=== PATIENT | male | born 1955 | race Caucasian/White ===

== ENCOUNTER → 2024-11-05 13:33 | Outpatient (REF) | payer MEDICARE, BC, SELFPAY | LOC: HWRAD 13:33 | PROVIDERS: ATTENDING PHYSICIAN Physician Assistant Medical | DX: M16.0 Bilateral primary osteoarthritis of hip (principal) | CPT/HCPCS: 73522 ==

== ENCOUNTER 2025-01-26 05:40 | Observation (INO) | payer OTHER, SELFPAY ==
[2025-01-25 23:50] VITALS: BP 144/59; BMI 37.8
[2025-01-26] VITALS (14 sets, daily range): BP systolic 124–173; BP diastolic 46–82; PULSE 59–85; BMI 38.0
[2025-01-26 00:32] LABS: ALT (SGPT) 27 U/L (0-50); AST (SGOT) 30 U/L (17-59); Albumin 4.0 g/dl (3.5-5.0); Alkaline Phosphatase 78 U/L (38-126); Blood Urea Nitrogen 38 mg/dl (9-20); Calcium 8.7 mg/dl (8.4-10.2); Carbon Dioxide 23 mmol/L (22-30); Chloride 108 mmol/L (98-107); Estimated Creatinine Clearance 54 ml/min; Glucose 146 mg/dl (70-99); Hematocrit 37.9 % (39.0-52.0); Hemoglobin 12.2 g/dL (13.0-18.0); Mean Corp Hgb Conc. 32.2 g/dL (33.0-37.0); Mean Corpuscular Volume 81.5 fL (80.0-94.0); Nucleated Red Blood Cells % 0 % (-); Platelet Count 184 10^3/uL (130-400); Potassium 4.8 mmol/L (3.5-5.1); Red Cell Dist. Width 15.3 % (11.5-14.5); Sodium 134 mmol/L (135-145); Total Protein 6.5 g/dl (6.3-8.2); eGFR 46.06
[2025-01-26 00:39] LABS: INR 2.26; PT 25.1 Sec (11.4-14.6)
[2025-01-26 00:42] LABS: Troponin I < 0.012 ng/ml
--- NOTE | 2025-01-26 01:35 | EDRN ---
Pt pulled up old labs on his phone from August, Creatinine was 1.47
--- NOTE | 2025-01-26 02:25 | ED.GENMED ---
History of Present Illness
General
Chief Complaint: Dizziness
Source: patient
Exam Limitations: none
Time Seen by Provider: 01/26/25 02:15
Nursing documentation reviewed up to this point in time: agreed with
History of Present Illness
History of Present Illness:
Note:
CHIEF COMPLAINT(S)
Confusion, dizziness
HISTORY OF PRESENT ILLNESS
The patient is a 69-year-old male with a history of atrial fibrillation on Warfarin, hypertension, hyperlipidemia, diabetes, who presented with acute onset of confusion, dizziness, and tingling sensations. The symptoms began around 9:30 to 10:00 PM
while the patient was sitting and conversing with his girlfriend. He was sitting in a chair in the living room when the symptoms started. He described feeling as though his blood was draining from his body, mayi to passing through a thermocline
while scuba diving, experiencing a sensation of pressure and cold. The patient reported confusion, lightheadedness, and a tingling sensation in his hands, knees, and legs, which he described as 'pins and needles.' No back pain was reported. He
recounted feeling like he was dying and struggled with word-finding and also had difficulties speaking as well however he notes that his girlfriend did not notice any changes to his. The patient believes the episode lasted around 5 to 10 minutes.
The patient denied previous experiences of similar episodes and reported feeling better at the time of the evaluation. He denies headache, neck pain, double vision, blurry vision, difficulty swallowing, one-sided weakness. He denies chest pain,
shortness of breath.
REVIEW OF SYSTEMS
See HPI
PHYSICAL EXAM
Nursing notes reviewed and vital signs reviewed.
General: Patient is well appearing and in no acute distress; non-toxic
Skin: Warm and dry, no rashes or lesions
Head: Normocephalic, atraumatic
Eyes: Sclera non-icteric. EOMs intact.
Cardiac: Regular rate and rhythm, no murmurs
Peripheral Vascular: No lower extremity swelling or edema
Pulm: Normal respiratory effort, no wheezes, rales, rhonchi
Abdomen: No abdominal tenderness
Musculoskeletal: 5 out of 5 strength in bilateral upper and lower extremities
Neuro: CN II-XII intact, no focal neurologic deficits. Normal finger-nose, [id number] testing. Normal gait. Normal speech.
Psychiatric: Appropriate mood and affect.
PROBLEM LIST
Acute Problems:
- Confusion
- Dizziness
- Tingling sensation in extremities
Chronic Problems:
- Atrial fibrillation
- Chronic kidney disease
PLAN
1. Administer intravenous fluids to address dehydration as indicated by blood work.
2. Conduct a computed tomography (CT) of the head
3. CBC, CMP, AC
DIFFERENTIAL DIAGNOSIS
The Differential Diagnosis includes, in no particular order and is not limited to:
1. Transient Ischemic Attack (TIA)
2. Stroke
3. Dehydration-induced Hypovolemia
4. Orthostatic Hypotension
5. Electrolyte Imbalance
6. Atrial Fibrillation-related episode
7. Anxiety Attack
8. Hypoglycemia
9. Labyrinthitis
10. Vertebrobasilar Insufficiency
CHART REVIEW
No prior ER physician documentation to review, no discharge summaries to review
Reviewed external medical summary report from October 22, 2024, patient had noted to have mixed hyperlipidemia which is stable and he is continued on his statin
MDM/DISPOSITION
The patient is a 69-year-old male with a history of atrial fibrillation on Warfarin, hypertension, hyperlipidemia, diabetes, who presented with acute onset of confusion, dizziness, and tingling sensations. The symptoms began around 9:30 to 10:00 PM
while the patient was sitting and conversing with his girlfriend. In the ER today he had an unremarkable work-up. He has a normal neurologic exam. At this time, cannot rule out TIA. Will admit for further work up
Review of Systems
Review of Systems
All Other Systems: ROS reviewed and negative except as documented in HPI and ROS
Phy Exam
Physical Exam
Physical Exam:
see hpi
Course
Orders/Labs/Results
Orders:
Orders
01/25/25 23:49
EKG [Electrocardiogram (*1)] Urgent
Reason for Study: Chest Pain
EKG- Treatment ONCE
01/25/25 23:57
Complete Blood Count/With Diff Urgent
Comprehensive Metabolic Panel Urgent
Prothrombin Time Urgent
Troponin I Urgent
01/26/25 02:38
CT Head W/o Iv Contrast Urgent
Comment:
Reason For Exam: transient dizziness, word finding difficulties
0.9% Sodium Chloride 500 ml [Nss] 500 ml IV BOLUS
01/26/25 05:18
Admit/Transfer Patient As Directed
Co-Sign Provider:
Level of Care: Observation services
Assign to:: Telemetry
Physician / Group: Emre
Diagnosis: TIA
Reason for Telemetry: CVA/TIA
Date to Stop Telemetry: 01/29/25
Time to Stop Telemetry: 11:00
PRN Pain Medication Management As Directed
May give lesser potent ordered pain med per pt: Yes
preference::
Protocol:: Medication orders for pain may be administered in a
manner that supports deferring to patient preference
when the pt is:
- Requesting an ordered lesser potent pain medication.
Least to most potent pain medications are defined
as: acetaminophen < NSAID < tramadol < opioids
(morphine, oxycodone, hydromorphone).
- Requesting a lesser dose of the same medication IF
ORDERED.
- Requesting a less intrusive route of administration
if both routes are prescribed by the provider (PO <
IV).
01/26/25 05:20
Code Status As Directed
Resuscitation Status: Full Code
01/26/25 Breakfast
2000 calorie (17 carb) Diabetic
At Your Request: Full Participation
Does patient need a safe tray?: No
01/26/25 06:36
0.9% Sodium Chloride 1000 ml [Nss] 1,000 ml IV 100 mls/hr
Acetaminophen [Tylenol] 650 mg PO Q4HPRN PRN
Dextrose 50%-Water [Dextrose 50% Syringe] 12.5 grams IV [id number] PRN
Glucagon [GlucaGen] 1 mg IM PRN PRN
Zolpidem Tartrate [Ambien] 10 mg PO HS PRN Insomnia Insomnia
01/26/25 06:36
Activity As Directed
Activity Level: Ambulate
With Assistance
Bedside Glucose Monitoring As Directed
Frequency: AC&HS
Additional Instructions:: Change to q6h if pt on TPN, tube feeding or not eating
Bladder Scan As Directed
Follow Bladder Retention/Intermittent Cath Algorithm?: Yes
PRN if no void in __ hours: 6
Frequency: Per Retention Algorithm
If Bladder Scan Result >: 400
then:: Straight cath
EKG with chest pain [ECG as needed] As Directed
ECG as needed for:: Chest Pain
I/O [Intake/ Output] As Directed
Frequency: Per unit guidelines
Neurological Checks As Directed
Frequency: q4h
Orthostatic Vital Signs As Directed
Orthostatic VS Frequency: BID
Straight Cath As Directed
Frequency: Per Retention Algorithm
Additional Instructions: straight cath as needed per acute urinary retention algorithm for 24 hrs
Additional Instructions: for bladder scan greater than 400 mL
Vital Signs As Directed
Frequency: Per unit guidelines
Weight As Directed
Frequency: Daily
Cpap [RESP] Routine
Patient to use own unit?: No
Set Pressure (cm H2O): 4
Instructions: HS and PRN.
Oxygen Therapy [O2 Therapy] [RESP] Routine
Titrate/Wean O2 to maintain O2 sat greater than (%): 94
Ot Eval And Treat Routine
PT Consult [Pt Eval And Treat] Routine
Activity Level: Ambulate
With Assistance
Speech Therapy Eval & Treat Routine
01/26/25 07:30
Insulin Aspart Corrective Mod [Novolog Flexpen-Moderate Resistance] See Protocol SC AC
01/26/25 07:37
TSH Reflex To Free T4 Routine
01/26/25 08:00
Clonidine [Catapres] 0.1 mg PO BID
Escitalopram Oxalate [Lexapro] 20 mg PO DAILY
Pantoprazole [Protonix] 40 mg PO DAILY
Verapamil [Calan] 120 mg PO BID
insulin degludec [Tresiba FlexTouch U-200] 40 unit SC DAILY
01/26/25 18:00
Tamsulosin [Flomax] 0.4 mg PO QPM
Warfarin [Coumadin] 5 mg PO [id number]@1800
01/26/25 22:00
Rosuvastatin Calcium [Crestor] 40 mg PO HS
01/27/25 06:00
Echo 2D MMode Doppler [Echo 2D MMode Color/Doppler] IN AM
Reason for Study: Murmur, TIA
Basic Metabolic Panel IN AM
Cardiovascular Evaluation IN AM
Complete Blood Count/No Diff IN AM
Glycohemoglobin (HgbA1c) IN AM
Prothrombin Time IN AM
MR Brain Without Contrast IN AM
Comment:
Reason For Exam: CVA / TIA
Recent pill cam endoscopy?: No
01/28/25 06:00
Prothrombin Time IN AM
01/28/25 18:00
Warfarin [Coumadin] 7.5 mg PO SuWe@1800
01/29/25 06:00
Prothrombin Time IN AM
01/29/25 11:00
DC Protocol for Telemetry ONCE
Abnormal Lab Results
01/26/25
00:08
RBC 4.65 L 10^6/uL
(4.70-6.10)
Hgb 12.2 L g/dL
(13.0-18.0)
Hct 37.9 L %
(39.0-52.0)
MCH 26.2 L pg
(27.0-31.0)
MCHC 32.2 L g/dL
(33.0-37.0)
RDW 15.3 H %
(11.5-14.5)
Abs Immat Gran (auto) 0.2 H 10^3/uL
(0-0.05)
Absolute Monos (auto) 0.8 H 10^3/uL
(0.1-0.6)
Immature Gran % 2.1 H %
(0-0.5)
Monocytes % 10.9 H %
(1.7-9.3)
PT 25.1 H Sec
(11.4-14.6)
Sodium 134 L mmol/L
(135-145)
Chloride 108 H mmol/L
(98-107)
BUN 38 H mg/dl
(9-20)
Creatinine 1.6 H mg/dL
(0.7-1.3)
Glucose 146 H mg/dl
(70-99)
01/26/25 00:08
01/26/25 00:08
Vital Signs
Initial and Last Documented VS:
Initial Vital Signs
Temp Pulse Resp BP Pulse Ox
97.2 F 68 20 144/59 97
01/25/25 23:50 01/25/25 23:50 01/25/25 23:50 01/25/25 23:50 01/25/25 23:50
Last Documented Vital Signs
Temp Pulse Resp BP Pulse Ox
97.8 F 52 16 137/58 97
01/26/25 06:30 01/26/25 07:27 01/26/25 06:36 01/26/25 06:36 01/26/25 08:00
*Pulse Oximetry
SaO2: 96
Oxygen Mode of Delivery: Room air
Patient hypoxic: no
*Critical Care Note
Total Time (30-74mins, 75-104mins- exclusive of procedures): Not Applicable
ED Attending Note
-
Portions of this chart may have been created with voice recognition software.� Occasional wrong word or��sound alike� substitutions may have occurred due to the inherent limitations of voice recognition software.
Discharge Plan
Departure
Patient Disposition: Admit
Date of Disposition: 01/26/25
Time of Disposition: 04:46
Admit to: Med/Surg
Presentation/result/management discussed w/ accepting MD/DO: Hospitalist
Patient with high blood pressure during this ER visit?: Yes
Condition: Fair
Discharge Problem:
Transient paresthesia, Word finding problem
Interventions
Interventions:
*Risk Screen - Suicide Last Done: 01/25/25 23:50
*General Assessment Last Done: 01/25/25 23:50
*Neglect/Abuse Screening Last Done: 01/25/25 23:50
*ED- Fall Risk Assessment Last Done: 01/25/25 23:50
*ED COVID-19 Vaccine History Last Done: 01/26/25 00:10
*Nursing Disposition Last Done: 01/26/25 06:36
ED- Neurological Assessment Last Done: 01/26/25 03:30
ED- Cardiac Assessment Last Done: 01/26/25 03:30
ED Swallowing Screen Last Done: 01/26/25 00:11
Discharge Date and Time
Discharge Date/Time: 01/26/25 06:20
[2025-01-26] MEDS: NSS 500 IV (02:41)
--- NOTE | 2025-01-26 05:22 | HPS.HSE ---
Family Physician
-
Family Physician: Tanisha Griffith
Chief Complaint
-
Confusion
History of Present Illness
Patient is a 69y M with PMH significant for hypertension, DM-II and A-Fib who presents to ED complaining of episode of confusion this evening. Patient states that he was seated and watching TV this evening around 10 PM when he suddenly felt very
confused and disoriented. He states that he felt a sense of 'draining' from his head to his toes. He notes very dry mouth and states that he had difficulty speaking as a result. No focal weakness or numbness. No fall or injury. ? word finding
difficult described by EMS - however, patient reports that dry mouth kept him from speaking correctly. He denies any prior history of similar symptoms.
Here in the ED, patient feels completely back to his baseline.
He denies any recent illness, symptoms or complaints. No fevers / chills. No N/V/D.
No recent medication changes.
Medical History
Past Medical History
Past Medical History: Reports Other
Additional Past Medical History:
Paroxysmal Atrial Fibrillation
Hypertension
DM-II
Obesity
GERD
SHELL on CPAP
BPH
Depression / PTSD
Insomnia
Past Surgical History: Reports Other
Additional Past Surgical History:
Hernia Repair
Appendectomy
Right Shoulder Arthroscopy
R Index Finger Partial Amputation (trauma)
Social History
Tobacco: Former Smoker (Quit smoking 25 years ago. Approx 25 pack years total use.)
Alcohol: None
Drug: None
Family History
Family History: Not pertinent
Allergies / Home Medications
Allergies reflects when Allergies were last updated in [facility].
Home Medications with original date entered in [facility]
Allergy/Medication List:
Allergies
Allergy/AdvReac Type Severity Reaction Status Date / Time
Penicillins Allergy Rash Verified 01/26/25 01:20
ubidecarenone (From H2Q Allergy Hives Verified 01/26/25 01:20
CoQ10)
Home Medications
acetaminophen 650 mg tablet,extended release (Tylenol 8 Hour) 1,300 mg PO Q8H PRN pain 01/26/25
clonidine HCl 0.1 mg tablet 0.1 mg PO BID 01/26/25
escitalopram oxalate 20 mg tablet 20 mg PO DAILY 01/26/25
hydrochlorothiazide 12.5 mg tablet 12.5 mg PO DAILY 01/26/25
insulin aspart U-100 100 unit/mL (3 mL) subcutaneous pen (Novolog FlexPen U-100 Insulin aspart) 1 sliding scale dose SC DIRECTED PRN bllod sugar level/diet 01/26/25
insulin degludec 200 unit/mL (3 mL) subcutaneous pen (Tresiba FlexTouch U-200 insulin) 40 unit SC DAILY 01/26/25
pantoprazole 40 mg tablet,delayed release 40 mg PO DAILY 01/26/25
pioglitazone 45 mg tablet 45 mg PO DAILY 01/26/25
rosuvastatin 40 mg tablet 40 mg PO HS 01/26/25
tamsulosin 0.4 mg capsule 0.4 mg PO QPM 01/26/25
valsartan 160 mg tablet 160 mg PO BID 01/26/25
verapamil 120 mg tablet 120 mg PO BID 01/26/25
warfarin 5 mg tablet 5 mg PO MOTUTHFRSA 01/26/25
warfarin 7.5 mg tablet 7.5 mg PO SUWE 01/26/25
zolpidem 10 mg tablet 10 mg PO HS 01/26/25
Review of Systems
-
History Source: Patient
A 12 point ROS was completed and negative except as noted: Yes
Constitutional: Reports Fatigue; Denies Fever or Chills
EENT: Reports Other (Dry Mouth); Denies Sore Throat
Respiratory: Denies Cough or Trouble Breathing
Cardiac: Denies Chest Pain, Diaphoresis or Palpitations
Abdomen/GI: Denies Abdominal Pain, Nausea, Vomiting or Diarrhea
: Denies Dysuria, Frequency or Flank Pain
Musculoskeletal: Reports Edema; Denies Joint Pain
Neurological: Denies Dizzy, Headache, Weakness or Numbness
Psych: Denies Depression or Anxiety
Physical Exam
Vital Signs
Vital Signs
Temp Pulse Resp BP Pulse Ox
97.2 F 54 10 130/68 98
01/25/25 23:50 01/26/25 04:00 01/26/25 04:00 01/26/25 04:00 01/26/25 04:00
Physical Exam
General: Other (69y M in no acute distress.)
HEENT: Other (Dry MM. Thick neck.)
Respiratory: Clear; No Wheezes, Rales or Rhonchi
Cardiac: S1/S2, Regular Rhythm and Murmur (II/ KEYANNA)
GI: Soft, Non Tender, Non Distended and Normal Bowel Sounds
Musculoskeletal: No Clubbing, No Cyanosis and Other (1+ pitting edema b/l ankles.)
Neuro: AO x 3 and Nonfocal/grossly intact
Laboratory Results
-
01/26/25 00:08
01/26/25 00:08
Laboratory Results
PT 25.1 Sec (11.4-14.6) H 01/26/25 00:08
INR 2.26 01/26/25 00:08
Total Bilirubin 0.5 mg/dl (0.2-1.3) 01/26/25 00:08
AST 30 U/L (17-59) 01/26/25 00:08
ALT 27 U/L (0-50) 01/26/25 00:08
Alkaline Phosphatase 78 U/L (38-126) 01/26/25 00:08
Troponin I < 0.012 ng/ml 01/26/25 00:08
Impression/Plan
-
A/P: Patient is a 69y M with PMH significant for hypertension, DM-II and A-Fib who presents to ED complaining of episode of confusion and disorientation this evening.
Confusion / Disorientation
- Observe overnight for further evaluation and treatment.
- Patient's description of draining sensation and generalized 'foggy' feeling, dry mouth, etc sound c/w hypotension / hypoglycemia or some other metabolic / global issue.
- No specific focal complaints to suggest acute CVA - though he has multiple risk factors for this.
- CT head in the ED was unremarkable. Check MRI for completeness. Neuro evaluation if any abnormalities appreciated.
- Monitor for any new / recurrent symptoms.
- Monitor on tele for any arrhythmia.
- Check Echo given murmur appreciated on exam.
- Check orthostatic signs. Monitor for hypotension, hypoglycemia, etc.
URIEL v CKD
- SCr = 1.6 with no prior value for baseline.
- Will hold HCTZ and ARB for now.
- IVFs overnight and follow SCr to establish baseline.
Benign Hypertension
- Stable. Well-controlled on current multidrug regimen.
- Holding HCTZ and valsartan acutely as noted above.
- Continue other medications with holding parameters to avoid hypotension.
- Adjust regimen as needed.
DM-II
- Stable. Continue basal : bolus insulin regimen.
- Hold pioglitazone acutely.
- Follow glucose and cover with SSI as needed.
- Update A1C.
Paroxysmal Atrial Fibrillation
- Stable. In NSR at present.
- Continue verapamil for rate control.
- Continue Coumadin for stroke risk reduction (missed this evening's dose).
- Follow daily INR and adjust regimen as needed.
SHELL on CPAP
- Stable. Continue nightly PAP therapy.
BPH
- Stable. Continue tamsulosin.
- Bladder scan protocol.
Depression / PTSD
- Stable. Continue Lexapro.
DVT Prophylaxis: On Coumadin
Code Status: Full
--- NOTE | 2025-01-26 06:21 | PTCARENOTE ---
pt rec'vd from ER able to self ambulate to bed, vs WNL, pt voided ambulated to restroom, oriented to unit.
--- NOTE | 2025-01-26 06:35 | EDRN ---
Patient taken to room 2106 on monitor on stretcher by technology sales consultant.
[2025-01-26 07:05] LABS: Glucose - Point of Care 81 mg/dl (70-99)
[2025-01-26] MEDS: NSS 1000 IV ×2 (07:18→17:24)
--- NOTE | 2025-01-26 07:57 | W.PN.HOSP.TC ---
Today's Communication/Plan
-
Continue to monitor on telemetry
See plan
Assessment / Plan
Assessment / Plan
Physical Exam
General: Other (69y M in no acute distress.)
HEENT: Other (Dry MM. Thick neck.)
Respiratory: Clear; No Wheezes, Rales or Rhonchi
Cardiac: S1/S2, Regular Rhythm and Murmur (II/ KEYANNA)
GI: Soft, Non Tender, Non Distended and Normal Bowel Sounds
Musculoskeletal: No Cyanosis and Other (1+ pitting edema b/l ankles.)
Neuro: AO x 3 and Nonfocal/grossly intact
Assessment/Plan
69 y/o male with past medical history significant for hypertension, DM-II and A-Fib who presents to ED complaining of episode of confusion on 01/25/25 evening. Patient stated that he was seated and watching TV around 10 PM when he suddenly felt
very confused and disoriented. He stated that he felt a sense of 'draining' from his head to his toes. He noted very dry mouth and states that he had difficulty speaking as a result. No focal weakness or numbness. No fall or injury. ? word
finding difficult described by EMS - however, patient reports that dry mouth kept him from speaking correctly. He denied any prior history of similar symptoms.
Once in the ED, patient felt completely back to his baseline.
He denied any recent illness, symptoms or complaints. No fevers / chills. No N/V/D.
No recent medication changes.
Confusion / Disorientation
Concern for Symptomatic Bradycardia Resulting in Patient's Weakness
- Patient's description of draining sensation and generalized 'foggy' feeling, dry mouth, etc sound c/w hypotension / hypoglycemia or some other metabolic / global issue.
- No specific focal complaints to suggest acute CVA - though he has multiple risk factors for this.
- CT head in the ED was unremarkable. Check MRI for completeness. Neuro evaluation if any abnormalities appreciated.
- Monitor for any new / recurrent symptoms.
- Monitor on tele for any arrhythmia.
- Echo
- Cardio consult given concern for symptomatic bradycardia
- Check orthostatic signs -- negative so far. Monitor for hypotension, hypoglycemia, etc.
URIEL v CKD
- SCr = 1.6-->1.5 (with no prior value for baseline).
- Will hold HCTZ and ARB for now.
- IVFs and follow SCr to establish baseline.
Benign Hypertension
- Stable. Well-controlled on current multidrug regimen.
- Holding HCTZ and valsartan acutely as noted above.
- Continue other medications with holding parameters to avoid hypotension.
- Adjust regimen as needed.
DM-II
- Stable. Continue basal : bolus insulin regimen.
- Hold pioglitazone acutely.
- Follow glucose and cover with SSI as needed.
- Update A1C.
Paroxysmal Atrial Fibrillation
- Stable.
- Continue verapamil for rate control -- dose reduced to help with bradycardia and patient's presenting symptoms
- Continue Coumadin for stroke risk reduction (missed this evening's dose).
- Follow daily INR and adjust regimen as needed.
SHELL on CPAP
- Stable. Continue nightly PAP therapy.
BPH
- Stable. Continue tamsulosin.
- Bladder scan protocol.
Depression / PTSD
- Stable. Continue Lexapro.
DVT Prophylaxis: On Coumadin
Code Status: Full
This is not a billable note.
Anticipated Discharge: 24 - 48 hours
Subjective/Interval History
-
Date of Service: January 26, 2025
Patient was seen and examined. He stated that his confusion and weakness have completely resolved and he is feeling fine.
Objective Data
-
Labs:
Laboratory Results
01/26/25
00:08
WBC 7.2
Hgb 12.2 L
Hct 37.9 L
Plt Count 184
PT 25.1 H
INR 2.26
Sodium 134 L
Potassium 4.8
Chloride 108 H
Carbon Dioxide 23
BUN 38 H
Creatinine 1.6 H
Glucose 146 H
Calcium 8.7
Total Bilirubin 0.5
AST 30
ALT 27
Alkaline Phosphatase 78
Vital Signs:
Vital Signs
Temp Pulse Resp BP Pulse Ox
97.8 F 52 16 137/58 97
01/26/25 06:30 01/26/25 07:27 01/26/25 06:36 01/26/25 06:36 01/26/25 06:36
[2025-01-26] MEDS: PROTONIX 40 MG PO (08:00)
[2025-01-26] MEDS: LEXAPRO 20 MG PO (08:00)
[2025-01-26] MEDS: CATAPRES 0.1 MG PO ×2 (08:01→21:15)
[2025-01-26 08:24] LABS: Hematocrit 38.1 % (39.0-52.0); Hemoglobin 12.1 g/dL (13.0-18.0); Mean Corp Hgb Conc. 31.8 g/dL (33.0-37.0); Mean Corpuscular Volume 82.6 fL (80.0-94.0); Platelet Count 174 10^3/uL (130-400); Red Cell Dist. Width 15.4 % (11.5-14.5)
--- NOTE | 2025-01-26 09:17 | PTOTSP ---
Speech Therapy Evaluation:
Pt with functional oropharyngeal swallow at bedside. No overt s/sx of aspiration. Head CT negative, pt passed 3oz swallow screen, NIH 0, vitals stable, WBC WNL, and pt without hx of dysphagia.
Recommend:
1. Cont. regular solids and thin liquids
2. Meds as tolerated
3. General aspiration precautions
4. [employer] to s/o - please reconsult if indicated
[2025-01-26 09:26] LABS: Blood Urea Nitrogen 33 mg/dl (9-20); Calcium 8.9 mg/dl (8.4-10.2); Carbon Dioxide 24 mmol/L (22-30); Chloride 108 mmol/L (98-107); Estimated Creatinine Clearance 56 ml/min; Glucose 84 mg/dl (70-99); Magnesium 2.1 mg/dl (1.6-2.3); Potassium 4.4 mmol/L (3.5-5.1); Sodium 136 mmol/L (135-145); eGFR 49.77
[2025-01-26] MEDS: LANTUS 0.4 UNITS SC (09:38)
--- NOTE | 2025-01-26 09:38 | CON.CAR ---
Addendum entered and electronically signed by Russell Patton MD 01/26/25 14:04:
I saw and examined the patient.
The CONTINUOUS IMPROVEMENT MANAGER's note was reviewed and I agree with the note.
69-year-old male with a history of paroxysmal atrial fibrillation, chronic anticoagulation with Coumadin, moderate aortic stenosis, hypertension diabetes and CKD who presents having an episode of dizziness disorientation and weakness. He says he
was in his usual state of health sitting in a chair and almost felt like the blood was draining from his head he felt a bit disoriented was but was still able to call 911 and was able to check his blood sugar (no hypoglycemia recorded) symptoms
lasted 5 minutes. He was still having some symptoms when he EMS arrived but not as severe. No hypotension or arrhythmias reported. Patient is currently asymptomatic. He has had some heart rates in the 50s but no evidence of severe bradycardia or
indication for pacing. He is normally on verapamil SR 120 mg twice a day (verified by calling his pharmacy) last dose was yesterday evening.
Exact cause of symptoms unclear. Patient does not clearly describe presyncopal symptoms although it is possible that some of what he is describing was a presyncopal episode. Also would consider neurologic causes in this patient to felt as if he
was disoriented. Currently blood pressure stable and patient in sinus rhythm.
- Continue to monitor on telemetry
- Empirically reduce verapamil to 120 mg once a day
- Echocardiogram
-Continued assessment for other causes of symptoms by primary team
- If patient remains asymptomatic and the above testing does not show a clear cause of symptoms then I would recommend longer outpatient cardiac monitoring such as a a 2-week monitor.
Original Note:
Consultation
Consultation Request
Date/Time Consultation Requested: 01/26/25917
Date/Time Consultation Performed: 01/26/25929
Requesting Provider: Dr. Mendoza
Performing Provider: Jessica MOSLEY for Dr. Patton
Reason for Consultation: weakness/disorientation episode
Medical History
-
Chief Complaint: disorientation/weakness
History of Present Illness:
69 y/o male (previous fingernail former Dr. Thomas, but transitioning to Dr. Cueva) with PAF on warfarin, DM2, CKD3, dyslipidemia, HTN, moderate , and obesity who is here for an episode last night of disorientation/weakness while he was sitting
in his chair around 10 PM talking to his girlfriend. He felt like the blood left him and he was having feelings of eugene vu. He was weak and felt like he was going to . His girlfriend said he was able to talk and was not pale. His blood sugar was
154. He was able to contact 911. He thinks the whole episode lasted about 5 minutes.
Past Medical History
Past Medical History: Arrhythmias, HTN, Hypercholesterolemia and NIDDM
Social History
Tobacco: Former Smoker
Family History
Family History: Reviewed & Not Pertinent
Allergies / Home Medications
Allergy/AdvReac Type Severity Reaction Status Date / Time
Penicillins Allergy Rash Verified 01/26/25 01:20
ubidecarenone (From H2Q Allergy Hives Verified 01/26/25 01:20
CoQ10)
�Medication �Instructions �Recorded �Confirmed �Type
acetaminophen 650 mg 1,300 mg PO Q8H PRN pain 01/26/25 01/26/25 History
tablet,extended release (Tylenol 8
Hour)
clonidine HCl 0.1 mg tablet 0.1 mg PO BID 01/26/25 01/26/25 History
escitalopram oxalate 20 mg tablet 20 mg PO DAILY 01/26/25 01/26/25 History
hydrochlorothiazide 12.5 mg tablet 12.5 mg PO DAILY 01/26/25 01/26/25 History
insulin aspart U-100 100 unit/mL 1 sliding scale dose SC 01/26/25 01/26/25 History
(3 mL) subcutaneous pen (Novolog DIRECTED PRN bllod sugar level/diet
FlexPen U-100 Insulin aspart)
insulin degludec 200 unit/mL (3 40 unit SC DAILY 01/26/25 01/26/25 History
mL) subcutaneous pen (Tresiba
FlexTouch U-200 insulin)
pantoprazole 40 mg tablet,delayed 40 mg PO DAILY 01/26/25 01/26/25 History
release
pioglitazone 45 mg tablet 45 mg PO DAILY 01/26/25 01/26/25 History
rosuvastatin 40 mg tablet 40 mg PO HS 01/26/25 01/26/25 History
tamsulosin 0.4 mg capsule 0.4 mg PO QPM 01/26/25 01/26/25 History
valsartan 160 mg tablet 160 mg PO BID 01/26/25 01/26/25 History
verapamil 120 mg tablet 120 mg PO BID 01/26/25 01/26/25 History
warfarin 5 mg tablet 5 mg PO MOTUTHFRSA 01/26/25 01/26/25 History
warfarin 7.5 mg tablet 7.5 mg PO SUWE 01/26/25 01/26/25 History
zolpidem 10 mg tablet 10 mg PO HS 01/26/25 01/26/25 History
Review of Systems
-
History Source: Patient
All other systems: Negative unless noted
Neurological: Other (disorientation and weakness episode as described)
Physical Exam
Vital Signs
Temp Pulse Resp BP Pulse Ox
97.8 F 52 16 137/58 97
01/26/25 06:30 01/26/25 07:27 01/26/25 06:36 01/26/25 06:36 01/26/25 08:00
Lab Results
01/26/25 07:37
01/26/25 07:37
Troponin I < 0.012 ng/ml 01/26/25 00:08
Physical Exam
General: Well Developed, Well Nourished and No Apparent Distress
HEENT: Normocephalic and Anicteric
Respiratory: Clear and Non Labored Respirations
Cardiac: Regular Rhythm and Murmur (II/ murmur)
Musculoskeletal: Edema (mild BLE edema (R > L), chronic per patient)
Skin: Warm and Dry
Neuro: AO x 3
Psych: Calm
Impression / Plan
-
Disorientation/weakness episode:
-etiology is unclear
-CT negative, MRI pending, orthos pending
-tele stable so far, continue to follow- no significant bradycardia
-echo to be obtained
PAF:
-stable in SR- continue to monitor on telemetry
-on warfarin, INR at goal, followed by PCP
Moderate :
-echo Feb 2024: EF 63%, grade II DD, moderate mg 22 mmHg and JORGE ALBERTO 1.1 cm2, dilated atria (he showed me on his phone)
-update echo
CKD III:
-OP creatinine 2022 1.5
-follow
HTN:
-stable
-would continue usual medications and monitor
DMII:
-per primary
Data Reviewed
-
EKG: Tracing Personally Visualized and interpreted (SB with SA 59 BPM)
CT Scan: Report Reviewed by me (head CT: No acute intracranial abnormality.)
Medical Tests (Nuc Med, Echo etc): Other (echo ordered)
Labs: Labs Reviewed by me
[2025-01-26 09:53] LABS: Glucose - Point of Care 131 mg/dl (70-99)
--- NOTE | 2025-01-26 10:16 | CM ---
CM following re: discharge planning.
Reviewed pt's chart, met with pt.
Pt is a 69 year old male, admitted with OBS status and primary dx of Confusion / Disorientation. OBS status explained to the pt, pt expressed his understanding, WILEY letter signed, placed on chart, pt has a copy.
Pt reports he lives with girlfriend and her mother in a 2SH duplex, first floor, has no children. 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
PCP: Tanisha Griffith
Pharmacy: [facility].
D/C plan: home with anticipated no needs. Girlfriend to transport at discharge.
CM will follow with discharge plan updates as hospitalization progresses
[2025-01-26 11:29] LABS: Glucose - Point of Care 155 mg/dl (70-99)
--- NOTE | 2025-01-26 12:12 | W.PN.UPDATE ---
Update Note
Progress Note Update
I called patient's pharmacy and confirmed he is taking Verapamil 120 mg (ER 24 hour release) PO BID. Will reduce to 120 mg once daily.
[2025-01-26 16:09] LABS: Glucose - Point of Care 128 mg/dl (70-99)
[2025-01-26] MEDS: CALAN EXTENDED RELEASE 120 MG PO (16:27)
[2025-01-26] MEDS: COUMADIN 5 MG PO (17:21)
[2025-01-26] MEDS: FLOMAX 0.4 MG PO (17:22)
[2025-01-26] MEDS: CRESTOR 40 MG PO (21:15)
[2025-01-26 21:21] LABS: Glucose - Point of Care 93 mg/dl (70-99)
[2025-01-27 03:00] VITALS: BP 143/69
[2025-01-27 03:12] VITALS: PULSE 85
[2025-01-27] MEDS: NSS 1000 IV (03:56)
[2025-01-27 06:00] VITALS: BMI 37.6
[2025-01-27 06:40] LABS: Hematocrit 38.4 % (39.0-52.0); Hemoglobin 12.4 g/dL (13.0-18.0); Mean Corp Hgb Conc. 32.3 g/dL (33.0-37.0); Mean Corpuscular Volume 81.7 fL (80.0-94.0); Platelet Count 173 10^3/uL (130-400); Red Cell Dist. Width 15.4 % (11.5-14.5)
[2025-01-27 06:54] LABS: INR 1.82; PT 21.2 Sec (11.4-14.6)
[2025-01-27 06:57] LABS: Glucose - Point of Care 82 mg/dl (70-99)
[2025-01-27 07:00] VITALS: BP 161/70
[2025-01-27 07:21] LABS: Blood Urea Nitrogen 23 mg/dl (9-20); Calcium 9.2 mg/dl (8.4-10.2); Carbon Dioxide 26 mmol/L (22-30); Chloride 110 mmol/L (98-107); Estimated Creatinine Clearance 64 ml/min; Glucose 80 mg/dl (70-99); HDL Cholesterol 48 mg/dl; LDL Cholesterol, Calculated 73 mg/dl; Potassium 4.4 mmol/L (3.5-5.1); Sodium 138 mmol/L (135-145); Very Low Density Lipoprotein 29 mg/dl (0-30); eGFR 59.10
[2025-01-27] MEDS: CATAPRES 0.1 MG PO (07:59)
[2025-01-27] MEDS: CALAN EXTENDED RELEASE 120 MG PO (07:59)
[2025-01-27] MEDS: PROTONIX 40 MG PO (07:59)
[2025-01-27] MEDS: LEXAPRO 20 MG PO (08:00)
[2025-01-27] MEDS: LANTUS 0.4 UNITS SC (08:05)
[2025-01-27 09:45] LABS: Glycohemoglobin (HgbA1c) 6.8 % (4.0-5.6)
[2025-01-27 09:59] VITALS: BP 157/60; BP 160/68; BP 160/77; PULSE 63; PULSE 65; PULSE 73
--- NOTE | 2025-01-27 10:02 | W.PN.HOSP.TC ---
Today's Communication/Plan
-
Discharge today
Assessment / Plan
Assessment / Plan
Physical Exam
General: Other (69y M in no acute distress.)
HEENT: Other (Dry MM. Thick neck.)
Respiratory: Clear to Auscultation Bilaterally
Cardiac: S1/S2, Regular Rhythm and Murmur (II/ KEYANNA)
GI: Soft, Non Tender, Non Distended and Normal Bowel Sounds
Musculoskeletal: No Cyanosis and Other (Trace pitting edema b/l ankles.)
Neuro: AO x 3 and Nonfocal/grossly intact throughout bilaterally with regards to sensation and motor strength and coordination
Assessment/Plan
69 y/o male with past medical history significant for hypertension, DM-II and A-Fib who presents to ED complaining of episode of confusion on 01/25/25 evening. Patient stated that he was seated and watching TV around 10 PM when he suddenly felt
very confused and disoriented. He stated that he felt a sense of 'draining' from his head to his toes. He noted very dry mouth and states that he had difficulty speaking as a result. No focal weakness or numbness. No fall or injury. ? word
finding difficult described by EMS - however, patient reports that dry mouth kept him from speaking correctly. He denied any prior history of similar symptoms.
Once in the ED, patient felt completely back to his baseline.
He denied any recent illness, symptoms or complaints. No fevers / chills. No N/V/D.
No recent medication changes.
Confusion / Disorientation - RESOLVED
Concern for Symptomatic Bradycardia Resulting in Patient's Weakness -- IMPROVED with decreased dose of Verapamil
- Patient's description of draining sensation and generalized 'foggy' feeling, dry mouth, etc sound c/w hypotension / hypoglycemia or some other metabolic / global issue.
- No specific focal complaints to suggest acute CVA - though he has multiple risk factors for this.
- CT head in the ED was unremarkable. MRI Brain with mild microangiopathic changes but no acute intracranial abnormality.
- Echo is stable
- Cardio consult given concern for symptomatic bradycardia
- Orthostatic vital signs -- negative so far.
URIEL v CKD - IMPROVED
- SCr = 1.6-->1.5-->1.3 (with no prior value for baseline).
- Continue to hold HCTZ and ARB for now.
- IVFs were given during hospitalization
Benign Hypertension
- Stable.
- Holding HCTZ and valsartan acutely as noted above.
- Continue other medications with holding parameters to avoid hypotension.
- Increased Clonidine to 0.2 mg BID
DM-II
- Stable. Continue basal : bolus insulin regimen.
- Hold pioglitazone acutely -- resume after outpatient re-evaluation
- Follow glucose and cover with SSI as needed.
- Update A1C 6.8%
Paroxysmal Atrial Fibrillation
- Stable.
- Continue verapamil for rate control -- dose reduced to help with bradycardia and patient's presenting symptoms
- Continue Coumadin for stroke risk reduction
- Follow INR and adjust regimen as needed.
SHELL on CPAP
- Stable. Continue nightly PAP therapy.
BPH
- Stable. Continue tamsulosin.
- Bladder scan protocol.
Depression / PTSD
- Stable. Continue Lexapro.
DVT Prophylaxis: On Coumadin
Code Status: Full
More than 30 minutes spent in discharge including
Final examination of the patient
Summarizing hospital stay
Instructions for continuing care to all relevant caregivers
Preparation of discharge records, prescriptions, and referral forms
Total time spent (in minutes): 39
Anticipated Discharge: Today
Subjective/Interval History
-
Date of Service: January 27, 2025
Patient was seen and examined. He denied any confusion, weakness, numbness, tingling, chest pain, fatigue or any other complaints.
Objective Data
-
Labs:
Laboratory Results
01/27/25 01/27/25
06:23 06:24
WBC 7.4
Hgb 12.4 L
Hct 38.4 L
Plt Count 173
PT 21.2 H
INR 1.82
Sodium 138
Potassium 4.4
Chloride 110 H
Carbon Dioxide 26
BUN 23 H
Creatinine 1.3
Glucose 80
Calcium 9.2
Vital Signs:
Vital Signs
Temp Pulse Resp BP Pulse Ox
97.7 F 57 16 161/70 95
01/27/25 07:00 01/27/25 07:59 01/27/25 07:00 01/27/25 07:59 01/27/25 09:24
I&O
01/26/25 01/27/25 01/28/25
06:59 06:59 06:59
Intake Total 3094 / 3094
Balance 3094 / 3094
[2025-01-27 10:42] LABS: Glucose - Point of Care 146 mg/dl (70-99)
--- NOTE | 2025-01-27 10:44 | W.PN.CD ---
Today's Communication / Plan
-
Home on lower dose verapamil and increased clonidine for BP control
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
Cardiology will sign off
Impression / Plan
-
Disorientation/weakness episode:
-etiology is unclear => SB improved with less verapamil. It is not certain that his Sx were from bradycardia
-CT negative, MRI pending, orthos pending
-tele stable so far, continue to follow- no significant bradycardia
-echo to be obtained
PAF:
-stable in SR- continue to monitor on telemetry
-on warfarin, INR at goal, followed by PCP
Moderate :
-echo Feb 2024: EF 63%, grade II DD, moderate mg 22 mmHg and JORGE ALBERTO 1.1 cm2, dilated atria (he showed me on his phone)
- Echo here is stable
-update echo
CKD III:
-OP creatinine 2022 1.5
-follow
HTN:
-stable
-would continue usual medications and monitor
DMII:
-per primary
Physical Exam
Vital Signs/Labs
Vital Signs
Temp Pulse Resp BP Pulse Ox
97.7 F 57 16 161/70 95
01/27/25 07:00 01/27/25 07:59 01/27/25 07:00 01/27/25 07:59 01/27/25 09:24
01/26/25 01/27/25 01/28/25
06:59 06:59 06:59
Actual Weight 113.262 kg 112.037 kg
01/27/25 06:23
01/27/25 06:23
PT 21.2 Sec (11.4-14.6) H 01/27/25 06:24
INR 1.82 01/27/25 06:24
Magnesium 2.1 mg/dl (1.6-2.3) 01/26/25 07:37
Triglycerides 148 mg/dl (10-149) 01/27/25 06:23
LDL Cholesterol, Calc 73 mg/dl 01/27/25 06:23
VLDL Cholesterol, Calc 29 mg/dl (0-30) 01/27/25 06:23
HDL Cholesterol 48 mg/dl 01/27/25 06:23
LAB Results
01/26/25
00:08
Troponin I < 0.012
Physical Exam
Constitutional: No acute distress
EENT: Anicteric
Cardiovascular: Rhythm & rate is regular, Pedal edema is absent and Systolic murmur present
Respiratory: Respiratory effort normal and Lungs clear to auscul.
GI: Soft and Distention absent
Neuro/Psych: AO x 3 and Motor deficits absent
Data Reviewed
-
Date of Service: January 27, 2025
[2025-01-27 11:10] VITALS: BP 153/69
--- NOTE | 2025-01-27 14:22 | W.DCSUMMARY ---
Discharge Summary
Discharge Data
Date of Admission: 01/26/25
Date of Discharge: 01/27/25
Total time spent discharging patient (in min): 39
-
Pending Results: No
Hospital Course
69 y/o male with past medical history significant for hypertension, DM-II and A-Fib who presented to the [facility] ED complaining of episode of confusion and sense of draining from his head to toes. Patient was not hypoglycemic based on his glucose
monitor reading during the episode of draining feeling. Given patient's acute kidney injury, his hydrochlorothiazide and angiotensin receptor radha were held, and he was started on intravenous fluids. It was noted that patient had bradycardia and
his Verapamil dose was reduced. Patient's MRI showed microangiopathic changes but was otherwise unremarkable. Patient's symptoms resolved, he felt well, he wanted to go home and was okay for discharge, with plan for outpatient placement of cardiac
monitor.
Discharge Plan
-
Patient Disposition: Home (Routine Discharge)
Discharge Diagnosis/Procedures: Confusion / Disorientation - RESOLVED
Concern for Symptomatic Bradycardia Resulting in Patient's Weakness -- IMPROVED with decreased dose of Verapamil
Acute Kidney Injury - IMPROVED
Moderate Aortic Stenosis
Benign Hypertension
Type 2 Diabetes Mellitus
Paroxysmal Atrial Fibrillation
SHELL on CPAP
BPH
Depression/PTSD
MRI Brain (as per radiologist's report):
'IMPRESSION:
No acute intracranial abnormality noted.
Mild microangiopathic changes.'
Condition: Good
Diet: Low Fat, Low Cholesterol, Low Sodium and Diabetic, Carb Controlled
Activity: As tolerated
Blood Work: CBC, BMP, Magnesium check with your primary care provider's office in 2 to 3 days
Activity Restrictions/Additional Instructions:
Your INR went below 2 during your hospital stay, your INR needs to be recheck tomorrow to see if you need an increase in your Coumadin dose. This is very important.
Referrals:
Tanisha Griffith PA [Family Provider, Family Practice] - in less than 1 week
Referral Note: Hospital Follow-Up
Rudy Cueva MD [Active, Cardiology] - in one to two days
Referral Note: Hospitalization Follow-Up. Needs outpatient mortgage collector.
Additional Discharge Medication Instructions: Verapamil dose reduced to 120 mg ONCE A DAY (from twice a day) to help with slower heart rate and your presenting symptoms (e.g. dizziness)
Clonidine increased to 0.2 mg BID (from 0.1 mg BID) for better blood pressure control.
Pioglitazone, Hydrochlorothiazide and Valsartan ALL HELD until outpatient re-evaluation with your primary care provider.
Prescriptions:
New
verapamil 120 mg Tablet Extended Release
120 mg PO DAILY Qty: 30 1RF
clonidine HCl 0.1 mg Tablet
0.2 mg PO BID Qty: 120 1RF
Continued
warfarin 7.5 mg Tablet
7.5 mg PO SUWE
acetaminophen [Tylenol 8 Hour] 650 mg Tablet Extended Release
1,300 mg PO Q8H PRN (Reason: pain)
tamsulosin 0.4 mg Capsule
0.4 mg PO QPM
pantoprazole 40 mg Tablet,Delayed Release (Dr/Ec)
40 mg PO DAILY
warfarin 5 mg Tablet
5 mg PO MOTUTHFRSA
zolpidem 10 mg Tablet
10 mg PO HS
escitalopram oxalate 20 mg Tablet
20 mg PO DAILY
insulin aspart U-100 [Novolog FlexPen U-100 Insulin] 100 unit/mL (3 mL) Insulin Pen
1 sliding scale dose SC DIRECTED PRN (Reason: bllod sugar level/diet)
Rx Instructions:
takes depending on blood sugar or what he eats.
rosuvastatin 40 mg Tablet
40 mg PO HS
insulin degludec [Tresiba FlexTouch U-200] 200 unit/mL (3 mL) Insulin Pen
40 unit SC DAILY
Held
pioglitazone 45 mg Tablet
45 mg PO DAILY
Hold Instructions: Resume on 03/18/25. Do not resume this medication until and unless your primary care provider says you can resume this medication.
valsartan 160 mg Tablet
160 mg PO BID
Hold Instructions: Resume on 03/18/25. Do not resume this medication until and unless your primary care provider says you can resume this medication.
hydrochlorothiazide 12.5 mg Tablet
12.5 mg PO DAILY
Hold Instructions: Resume on 03/18/25. Do not resume this medication until and unless your primary care provider says you can resume this medication.
Discontinued
clonidine HCl 0.1 mg Tablet
0.1 mg PO BID
verapamil 120 mg Tablet
120 mg PO BID
Discharge Orders:
Discharge Patient (As Directed); Ordered 01/27/25
Ordered By: Afshin Mendoza
Discharge Date and Time
Discharge Date/Time: 01/27/25 15:49
Print Language: KYRGYZ
--- NOTE | 2025-01-27 14:33 | CM ---
CM following re: discharge planning.
Reviewed pt's chart, met with pt.
Discharge order noted. Pt is aware and he stated his girlfriend will transport home. Pt still OBS status, no IMM required.
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
PT and OT evaluations noted - pt has no PT/OT skilled needs.
D/C plan: home no needs. Girlfriend to transport.
[2025-01-27 15:00] VITALS: BP 150/63
== END 2025-01-27 15:49 | disposition home or self-care (01) ==
LOC: 2 SOUTH 05:40
PROVIDERS: ADMITTING PHYSICIAN Hospitalist; ATTENDING PHYSICIAN Hospitalist; CONSULT PHYSICIAN Internal Medicine Cardiovascular Disease; EMERGENCY PHYSICIAN Emergency Medicine; FAMILY PHYSICIAN Physician Assistant Medical
DX: N17.9 Acute kidney failure, unspecified (principal); N18.30 Chronic kidney disease, stage 3 unspecified; E11.22 Type 2 diabetes mellitus with diabetic chronic kidney disease; I35.0 Nonrheumatic aortic (valve) stenosis; E78.00 Pure hypercholesterolemia, unspecified; R00.1 Bradycardia, unspecified; I12.9 Hypertensive chronic kidney disease with stage 1 through stage 4 chronic kidney disease, or unspecified chronic kidney disease; I48.0 Paroxysmal atrial fibrillation; E86.0 Dehydration; E66.9 Obesity, unspecified; K21.9 Gastro-esophageal reflux disease without esophagitis; G47.33 Obstructive sleep apnea (adult) (pediatric); N40.0 Benign prostatic hyperplasia without lower urinary tract symptoms; F32.A Depression, unspecified; F43.10 Post-traumatic stress disorder, unspecified; Z68.37 Body mass index [BMI] 37.0-37.9, adult; Z79.01 Long term (current) use of anticoagulants; Z79.4 Long term (current) use of insulin; Z79.899 Other long term (current) drug therapy; Z87.891 Personal history of nicotine dependence
CPT/HCPCS: 70030; 70450; 70551; 80048; 80053; 80061; 82962; 83036; 83735; 84443; 84484; 85025; 85027; 85610; 92610; 93005; 93306; 94660; 96360; 97161; 99285; G0378

== ENCOUNTER → 2025-03-09 07:22 | Outpatient (REF) | payer OTHER, SELFPAY | LOC: HWRCS 07:22 | PROVIDERS: ATTENDING PHYSICIAN Internal Medicine Cardiovascular Disease; FAMILY PHYSICIAN Physician Assistant Medical | DX: I47.29 Other ventricular tachycardia (principal) | CPT/HCPCS: 78452; 93017; A9500; J2785 ==

== ENCOUNTER → 2025-03-31 13:45 | Outpatient (REF) | payer OTHER, SELFPAY | LOC: HWRAD 13:45 | PROVIDERS: ATTENDING PHYSICIAN Physician Assistant; FAMILY PHYSICIAN Physician Assistant Medical | DX: M25.50 Pain in unspecified joint (principal); M47.816 Spondylosis without myelopathy or radiculopathy, lumbar region | CPT/HCPCS: 72110; 72200 ==

== ENCOUNTER → 2025-06-25 12:47 | Outpatient (REF) | payer OTHER, SELFPAY | LOC: RAD 12:47 | PROVIDERS: ATTENDING PHYSICIAN Family Medicine | DX: M79.89 Other specified soft tissue disorders (principal); M79.661 Pain in right lower leg; E11.8 Type 2 diabetes mellitus with unspecified complications; N18.31 Chronic kidney disease, stage 3a; I48.19 Other persistent atrial fibrillation | CPT/HCPCS: 93971 ==